=== PATIENT | female | born 1950 | race Caucasian/White ===

== ENCOUNTER → 2016-08-25 | Outpatient (REF) | payer BC | LOC: LAB 09:10 | PROVIDERS: ATTEND Family Medicine | DX: R73.09 Other abnormal glucose (principal) | CPT/HCPCS: 83036 ==

== ENCOUNTER → 2016-11-02 | Outpatient (CLI) | payer BC, MEDICARE ==
--- NOTE | 2016-11-03 17:31 | Diagnostic Imaging Report ---
EXAM: DIG IFRAH BILAT SCREEN W CAD The current study was also evaluated with a Computer Aided Detection (CAD) system. INDICATION: Screening. COMPARISON: Multiple mammograms 01/03/2011 through 09/22/2015. DENSITY: Scattered areas of fibroglandular density. FINDINGS: New possible focal asymmetry in the anterior upper left breast along the nipple line on the CC view. No mass, calcification or architectural distortion suspicious for malignancy in the right breast. IMPRESSION: 1. New possible focal asymmetry in the left breast. 2. No mammographic findings suspicious for malignancy in the right breast. RECOMMENDATION: Additional imaging of the left breast. ACR BI-RADS Category 0: Incomplete. (Needs additional imaging evaluation). Result letter will be mailed to the patient. Note: At least 10% of breast cancer is not imaged by mammography. Dictated by: Dictated on workstation # [id number]
== END ==
LOC: RAD 08:58
PROVIDERS: ATTEND Nurse Practitioner Family
DX: Z12.31 Encounter for screening mammogram for malignant neoplasm of breast (principal)

== ENCOUNTER 2016-11-16 10:55 | Inpatient (IN) | payer BC, MEDICARE ==
[~2016-11-16] VITALS: Ht 170.2 cm; Wt 65.2 kg
[2016-11-16] VITALS (17 sets, daily range): BP systolic 74–137; BP diastolic 50–74
--- OUTSIDE RECORDS SUMMARY | 2016-11-16 11:00 | XMS REPORT | Continuity of Care Document ---
Author Author [facility] Address Unknown Phone Unavailable Allergies Medications Problems Date Dx Coded Attending Type Code Diagnosis Diagnosed By 09/01/2015 Ot E78.5 09/01/2015 Ot I10 09/01/2015 Ot R73.9 10/05/2015 MARINO TRONCOSO, HARLEEN De La Cruz Ot Z12.31 10/07/2015 MARINO TRONCOSO, HARLEEN De La Cruz Ot Z12.31 12/23/2015 MARINO TRONCOSO, HARLEEN De La Cruz Ot R73.09 OTHER ABNORMAL GLUCOSE 2016 Ot R73.09 OTHER ABNORMAL GLUCOSE 09/05/2016 Ot R73.09 OTHER ABNORMAL GLUCOSE 09/13/2016 Ot R73.09 OTHER ABNORMAL GLUCOSE 11/02/2016 Ot R73.09 OTHER ABNORMAL GLUCOSE 11/04/2016 TOBIAS BARROS APRN Ot Z12.31 ENCNTR SCREEN MAMMOGRAM FOR MALIGNANT NE 11/08/2016 TOBIAS BARROS APRN Ot Z12.31 ENCNTR SCREEN MAMMOGRAM FOR MALIGNANT NE Procedures Results Test Result Range HEMOGLOBIN A1C* - 08/25/16 09:08 HEMOGLOBIN A1C* 5.9 4.0-6.0 Encounters ACCT No. Visit Date/Time Discharge Status Pt. Type Provider Facility Loc./Unit Complaint [id number] 11/02/2016 08:58:00 ACT Outpatient TOBIAS BARROS HUMAN SERVICES ASSISTANT [facility] RAD Z12.31 SCREENING [id number] 08/25/2016 09:37:00 Document Registration [id number] 12/06/2015 10:39:00 ACT Outpatient MARINO TRONCOSO, HARLEEN [facility] LAB [id number] 09/22/2015 09:49:00 ACT Outpatient MARINO TRONCOSO, HARLEEN [facility] RAD [id number] 08/20/2015 09:59:00 Document Registration
[2016-11-16] MEDS ORDERED: DILTIAZEM 25 MG/5 ML (CARDIZEM) VIAL ONE (11:03)
[2016-11-16] MEDS ORDERED: CALC1CAP21 PO (11:18)
[2016-11-16] MEDS ORDERED: PRV20T PO (11:18)
[2016-11-16] MEDS ORDERED: HYDR12.56 PO (11:18)
[2016-11-16] MEDS ORDERED: AML2.5T PO (11:18)
[2016-11-16] MEDS ORDERED: DILTIAZEM 25 MG/5 ML (CARDIZEM) VIAL IV ONE ×2 (11:20→11:55)
[2016-11-16 11:21] LABS: BASOPHILS % (AUTO) 0 % (0-2); EOSINOPHILS % (AUTO) 0 % (0-4); LYMPHOCYTES # (AUTO) 0.6 X10^3; MEAN CORPUSCULAR HGB CONC 33.3 g/dL (31.0-37.0); MEAN PLATELET VOLUME 11.6 FL (6.0-9.5); MONOCYTES # (AUTO) 1.1 X10^3; MONOCYTES % (AUTO) 13 % (3-11); NEUTROPHILS # (AUTO) 6.5 X10^3; NEUTROPHILS % (AUTO) 79 % (51-67); PLATELET COUNT 242 10^3uL (150-450); WHITE BLOOD COUNT 8.21 10^3uL (4.0-11.0)
[2016-11-16 11:27] LABS: ALBUMIN 3.2 g/dL (3.4-5.0); ALKALINE PHOSPHATASE 144 U/L (38-126); ANION GAP 14.9 MEQ/L (3-15); BUN/CREATININE RATIO 45 (10-20); TOTAL PROTEIN 6.8 g/dL (6.4-8.5)
[2016-11-16 11:33] LABS: MEAN CORPUSCULAR HEMOGLOBIN 23.7 PG (26.0-34.0); MEAN CORPUSCULAR VOLUME 71 FL (80-100)
[2016-11-16] MEDS ORDERED: ZLP5T PO (11:40)
[2016-11-16] MEDS ORDERED: meTOprolol 5 MG/5 ML (LOPRESSOR) VIAL IV ONE ×2 (12:30→13:35)
--- NOTE | 2016-11-16 12:40 | Diagnostic Imaging Report ---
INDICATION: Shortness of breath. Portable chest 12:11 PM FINDINGS: Heart size and pulmonary vascularity are normal. Lungs are clear. There are no effusions or pneumothoraces. IMPRESSION: Negative chest. Dictated by: Dictated on workstation # [id number]
[2016-11-16] MEDS ORDERED: PROPRANOLOL 40 MG PO SCH (14:05)
[2016-11-16] MEDS ORDERED: DOCUSATE SODIUM 100 MG (COLACE) CAP PO PRN (14:05)
[2016-11-16] MEDS ORDERED: MAG HYDROX/AL HYDROX/SIMETH 200-200-20/5 ML (MAG-AL PLUS) 30 ML UDC PO PRN (14:05)
[2016-11-16] MEDS ORDERED: ONDANSETRON 4 MG (ZOFRAN) ORAL DISSOLVE TAB PO PRN (14:05)
[2016-11-16] MEDS ORDERED: MAGNESIUM HYDROXIDE 80MG/ML (MILK OF MAGNESIA) 30 ML UDC PO PRN (14:05)
[2016-11-16] MEDS ORDERED: PROMETHAZINE HCL INJ 12.5 MG in SODIUM CHLORIDE 25 ML IV PRN (14:05)
[2016-11-16] MEDS ORDERED: CALCIUM CARBONATE CHEWABLE 300 MG (TUMS) TABLET PO PRN (14:05)
[2016-11-16] MEDS ORDERED: POLYETHYLENE GLYCOL 17 GM (MIRALAX) PACKET PO PRN (14:05)
[2016-11-16] MEDS ORDERED: IRBE1TAB33 PO (14:19)
[2016-11-16] MEDS ORDERED: NS FLUSH 3 ML PRN IV (14:30)
[2016-11-16] MEDS ORDERED: MULT-954 PO (14:32)
[2016-11-16] MEDS ORDERED: ASPI-860 PO (14:33)
[2016-11-16] MEDS ORDERED: ASP81TEC PO (14:34)
--- NOTE | 2016-11-16 14:55 | History and Physical (E) ---
History & Physical PCP: Denis Dillard MD CC: Afib with RVR HPI Jessica Simpson is a 66 year old female admitted from ED 11/16 where she presented from PCP's office. She had a physical there and EKG showed atrial fibrillation with rate of 200. She has no prior history of atrial fibrillation and she was not experiencing any chest pain or dyspnea. Admits to feeling palpitations at times before. HR was elevated as described. Temp 99.9. RR 34, BP 149/77. SpO2 99 % RA. CBC showed mild anemia at 10.6. WBC normal. INR 1.3. Na was low at 128 with K 3.3. Bili 1.2. T4 was high and TSH was very suppressed. Urine was not checked. She was given NS bolus, diltiazem 25 mg IV bolus x 2, and metoprolol 5 mg x 1. Rate improved some but she was still quite tachycardic. She was admitted to ICU for further management of new onset atrial fibrillation and newly identified hyperthyroidism. On arrival to unit, awake, alert, interactive, oriented, not dyspneic and having no chest pain. She relates history well. Was at clinic today just for well-woman check. Acknowledges having palpitations off and on for a couple of months. Hadn't reported this to anyone. No episodes of dyspnea or chest pain. No syncopal symptoms. Perhaps mild decrease in energy but it hasn't affected her daily activities. Has never had heart problems before. Regarding thyroid dysfunction, no prior problems with thyroid but sister has Graves disease. No neck swelling. No trouble swallowing. Acknowledges losing weight without trying, perhaps 5 pounds since 07/2016. Has felt jittery and anxious. No visual changes. No change in bowel habits. No hot flashes. More irritable, she acknowledges. Thinks her BP has been stable but she hasn't checked it regularly. PMH * HLD * HTN * Pedal edema due to amlodipine PSH * Tubal ligation ALLERGIES: Please see list at end of report. HOME MEDICATIONS: Please see list at end of report. FH Sister has Graves disease. Mom at 92 with Parkinson's, atrial fibrillation. She had skin cancer. Father had stroke. Son and 3 daughters are all healthy. SH Lives in [place]. Works at the [employer]. . No smoking. No alcohol. No drug use. ROS CONSTITUTION: No fever or chills. HEENT: No change in vision or hearing. No sores in mouth, sore throat. CV: No chest pain. PULM: No cough, shortness of breath, difficulty breathing. GI: No upset stomach, nausea, vomiting, constipation, or diarrhea. No blood in stool. : No dysuria. No blood in urine. MS: No new muscle or joint aches and pains. NEURO: No numbness or tingling. No weakness. INTEG: No rashes, lesions, or sores. ENDO: No heat or cold intolerance. No polydipsia or polyuria. HEME/LYMPH: No easy bruising or bleeding. No swollen glands. PSYCH: Mild increase in irritability. OBJECTIVE Vital Signs Date Time Temp Pulse Resp B/P Pulse Ox O2 Delivery O2 Flow Rate FiO2 11/16/16 11:05 99.9 196 34 149/77 99 Room Air GEN: Awake, alert, oriented, NAD HEENT: EOMI, PERRL, moist oral mucosa. CV: RRR S1 S2 normal with no murmur LUNGS: CTA B ABD: Soft, NT/ND with normal bowel sounds. EXTR: No C/C/E. Normal peripheral pulses. INTEG: No rash. NEURO: No focal motor neuro deficit. Weight: 62.8 kg LABS Laboratory Results-14 Days 11/16/16 11:05: Magnesium Level 1.6, SG-Ywk-T-Type Natriuretic Peptide 1870H, Prothromb Time International Ratio 1.3, Prothrombin Time 14.7H, Thyroglobulin Antibody [Pending ], Thyroid Peroxidase Antibodies [Pending], Thyroid Stimulating Immunoglobulin [ Pending], Thyroxine Binding Globulin [Pending], Troponin I < 0.012 11/16/16 11:10: Alanine Aminotransferase (ALT/SGPT) 50, Albumin 3.2#L, Albumin/Globulin Ratio 0.888L, Alkaline Phosphatase 144H, Anion Gap 14.9, Aspartate Amino Transf (AST/ SGOT) 32, BUN/Creatinine Ratio 45H, Basophils # (Auto) 0.0, Basophils (%) (Auto ) 0, Blood Urea Nitrogen 18, Calcium Level 8.9, Calcium/Ionized Calcium Ratio 4.0, Calculated Osmolality 251L, Carbon Dioxide Level 26, Chloride Level 90L, Creatinine 0.40L, Eosinophils # (Auto) 0.0, Eosinophils (%) (Auto) 0, Estimat Glomerular Filtration Rate 193.8, Estimated GFR (Non- 160.2, Free Thyroxine (T4) Calculated 6.79H, Glucose Level 129H, Hematocrit 31.80L, Hemoglobin 10.6L, Lymphocytes # (Auto) 0.6, Lymphocytes (%) (Auto) 7L, Mean Corpuscular Hemoglobin 23.7L, Mean Corpuscular Hemoglobin Concent 33.3, Mean Corpuscular Volume 71L, Mean Platelet Volume 11.6H, Monocytes # (Auto) 1.1, Monocytes (%) (Auto) 13H, Neutrophils # (Auto) 6.5, Neutrophils (%) (Auto) 79H, Platelet Count 242, Potassium Level 3.3#L, Red Blood Count 4.48, Red Cell Distribution Width 14.5, Smear Scan Yes, Sodium Level 128L, Thyroid Stimulating Hormone (TSH) < 0.02L, Thyroxine (T4) 21.3H, Total Bilirubin 1.2H, Total Protein 6.8, White Blood Count 8.21 EKG 11/16 Afib with RVR, right axis. IMAGING 11/16/16 CHEST 1 VIEW, AP/PA ONLY* INDICATION: Shortness of breath. Portable chest 12:11 PM FINDINGS: Heart size and pulmonary vascularity are normal. Lungs are clear. There are no effusions or pneumothoraces. IMPRESSION: Negative chest. ASSESSMENT Jessica Simpson is a 66 year old female admitted from ED 11/16 with new onset atrial fibrillation with RVR and newly-diagnosed hyperthyroidism. PLAN * Atrial fibrillation with RVR: New onset, likely due to hyperthyroidism. Got diltiazem 25 mg x 2 and metoprolol 5 mg x 1 in ED which improved rate but she remained in RVR. Admitted to ICU and started IV diltiazem drip. * Hyperthyroidism: Uncertain etiology. Suspect graves. Check iodine uptake scan if able at this facility. Check thyroid antibodies. Propranolol 40 mg BID and consider methimazole. * Hyponatremia: Multifactorial. Monitor trend with IVF replacement. * Hypokalemia: Mild. Check Mg. PO supplement. * F/E/N: Cardiac diet. NS bolus given in ED. Additional 1 L maintenance. I&O, daily weight. * Prophylaxis: Enoxaparin * Code Status: Full * Dispo: ICU for above issues, expecting 2-3 day stay. CHRONIC ISSUES * HTN: Hold amlodipine for now. Hold HCTZ due to hypokalemia and hyponatremia. Added propranolol due to hyperthyroidism. * HLD: Pravastatin. * Insomnia: Zolpidem Allergies/Home Medications Allergies: Coded Allergies: Sulfa (Sulfonamide Antibiotics) (Verified Allergy, Unknown, 11/16/16) Reported Home Medications Scheduled Amlodipine Besylate (Amlodipine Besylate) 2.5 MG PO DAILY (Reported) Calcium Carbonate/Vitamin D3 (Calcium 600 + D3 Softgel) 1 EACH PO DAILY ( Reported) Irbesartan/Hydrochlorothiazide (Irbesartan-HCTZ 300-12.5 mg) 1 TAB PO DAILY ( Reported) Pravastatin Sodium (Pravastatin Sodium) 20 MG PO DAILY (Reported) Zolpidem Tartrate (Zolpidem Tartrate) 5 MG PO HS Discontinued Medications Hydrochlorothiazide (Hydrochlorothiazide) 12.5 MG PO DAILY (Reported) Discontinued Reason: Course completed Copies to: End of Report . VIRI NATARAJAN MD Nov 16, 2016 14:02
[2016-11-16] MEDS: POTASSIUM CHLORIDE ER 20 MEQ TABLET PO SCH ×2 (15:05→18:16)
[2016-11-16] MEDS: DILTIAZEM IV FOR DRIP 125 MG in SODIUM CHLORIDE 100 ML IV PRN (15:14)
[2016-11-16] MEDS: ACETAMINOPHEN 325 MG TAB (TYLENOL) PO PRN (16:52)
[2016-11-16 17:09] LABS: ALBUMIN 2.9 g/dL (3.4-5.0); ANION GAP 11.9 MEQ/L (3-15)
[2016-11-16] MEDS: ZOLPIDEM 5 MG (AMBIEN) TAB PO SCH (20:55)
[2016-11-17] VITALS (15 sets, daily range): BP systolic 109–128; BP diastolic 52–81
[2016-11-17] MEDS: NS FLUSH 10 ML PRN IV ×2 (00:47→17:55)
[2016-11-17] MEDS ORDERED: SODIUM CHLORIDE 250 ML IV PRN (02:10)
[2016-11-17 06:10] LABS: BASOPHILS % (AUTO) 0 % (0-2); EOSINOPHILS % (AUTO) 0 % (0-4); LYMPHOCYTES # (AUTO) 0.8 X10^3; MEAN CORPUSCULAR HGB CONC 32.5 g/dL (31.0-37.0); MEAN PLATELET VOLUME 12.4 FL (6.0-9.5); MONOCYTES # (AUTO) 0.6 X10^3; MONOCYTES % (AUTO) 10 % (3-11); NEUTROPHILS # (AUTO) 4.6 X10^3; NEUTROPHILS % (AUTO) 75 % (51-67); PLATELET COUNT 217 10^3uL (150-450); WHITE BLOOD COUNT 6.06 10^3uL (4.0-11.0)
[2016-11-17 06:19] LABS: ALBUMIN 2.9 g/dL (3.4-5.0); ANION GAP 12.5 MEQ/L (3-15)
[2016-11-17 06:40] LABS: BILIRUBIN,URINE Negative (Negative); CLARITY,URINE Clear; COLOR,URINE Yellow; GLUCOSE, URINE (UA) Negative (Negative); LEUKOCYTE ESTERASE ,URINE Negative (Negative)
[2016-11-17 06:59] LABS: MEAN CORPUSCULAR HEMOGLOBIN 23.3 PG (26.0-34.0); MEAN CORPUSCULAR VOLUME 72 FL (80-100)
[2016-11-17] MEDS: ENOXAPARIN 40 MG/0.4 ML (LOVENOX) SYR SC SCH (08:45)
[2016-11-17] MEDS: POTASSIUM CHLORIDE ER 20 MEQ TABLET PO SCH (08:45)
[2016-11-17] MEDS: PRAVASTATIN 20 MG (PRAVACHOL) TABLET PO SCH (08:45)
[2016-11-17] MEDS ORDERED: NS FLUSH 3 ML DAILY IV SCH (09:00)
[2016-11-17] MEDS: PROPRANOLOL 20 MG (INDERAL) TABLET PO SCH ×2 (09:05→20:45)
[2016-11-17] MEDS: DILTIAZEM IV FOR DRIP 125 MG in SODIUM CHLORIDE 100 ML IV PRN (09:22)
[2016-11-17] MEDS ORDERED: METHIMAZOLE 10 MG PO SCH (09:30)
--- NOTE | 2016-11-17 09:56 | Progress Note (E) ---
Progress Note SUBJECTIVE Overnight, no major issues but lowered propranolol dose yesterday evening because of hypotension. HR low 100's - 120's. Still on diltiazem drip. Adding PO diltiazem 11/17. Unable to get thyroids uptake scan at this facility. Started methimazole. Recommended anticoagulation. Discussed options and she agrees to start warfarin. Daughter present. Updated both on findings, plan of care. OBJECTIVE Vital Signs Date Time Temp Pulse Resp B/P Pulse Ox O2 Delivery O2 Flow Rate FiO2 11/17/16 09:25 121 11/17/16 09:00 36 127/72 Room air 11/17/16 08:00 99.5 90 I & O 11/16/16 11/17/16 Cumulative From/Thru 19:00 07:00 11/16/16 11:05 - 11/17/16 06:38 Intake Total 1647 ml 1014 ml 2661 ml Output Total 350 ml 1100 ml 1450 ml Balance 1297 ml -86 ml 1211 ml GEN: Awake, alert, oriented, NAD HEENT: EOMI, PERRL, moist oral mucosa. CV: RRR S1 S2 normal with no murmur LUNGS: CTA B ABD: Soft, NT/ND with normal bowel sounds. EXTR: No C/C/E. Normal peripheral pulses. INTEG: No rash. NEURO: No focal motor neuro deficit. Lab-Past 14 Days, 35 Results 11/16/16 11:05: Magnesium Level 1.6, JN-Ymj-G-Type Natriuretic Peptide 1870H, Prothromb Time International Ratio 1.3, Prothrombin Time 14.7H, Thyroglobulin Antibody 1000H, Thyroid Peroxidase Antibodies 39H, Thyroid Stimulating Immunoglobulin [Pending] , Thyroxine Binding Globulin [Pending], Troponin I < 0.012 11/16/16 11:10: Alanine Aminotransferase (ALT/SGPT) 50, Albumin 3.2#L, Albumin/Globulin Ratio 0.888L, Alkaline Phosphatase 144H, Anion Gap 14.9, Aspartate Amino Transf (AST/ SGOT) 32, BUN/Creatinine Ratio 45H, Basophils # (Auto) 0.0, Basophils (%) (Auto ) 0, Blood Urea Nitrogen 18, Calcium Level 8.9, Calcium/Ionized Calcium Ratio 4.0, Calculated Osmolality 251L, Carbon Dioxide Level 26, Chloride Level 90L, Creatinine 0.40L, Eosinophils # (Auto) 0.0, Eosinophils (%) (Auto) 0, Estimat Glomerular Filtration Rate 193.8, Estimated GFR (Non- 160.2, Free Thyroxine (T4) Calculated 6.79H, Glucose Level 129H, Hematocrit 31.80L, Hemoglobin 10.6L, Lymphocytes # (Auto) 0.6, Lymphocytes (%) (Auto) 7L, Mean Corpuscular Hemoglobin 23.7L, Mean Corpuscular Hemoglobin Concent 33.3, Mean Corpuscular Volume 71L, Mean Platelet Volume 11.6H, Monocytes # (Auto) 1.1, Monocytes (%) (Auto) 13H, Neutrophils # (Auto) 6.5, Neutrophils (%) (Auto) 79H, Platelet Count 242, Potassium Level 3.3#L, Red Blood Count 4.48, Red Cell Distribution Width 14.5, Smear Scan Yes, Sodium Level 128L, Thyroid Stimulating Hormone (TSH) < 0.02L, Thyroxine (T4) 21.3H, Total Bilirubin 1.2H, Total Protein 6.8, White Blood Count 8.21 11/16/16 16:55: Troponin I < 0.012, Albumin 2.9L, Anion Gap 11.9, Blood Urea Nitrogen 16, Calcium Level 8.5L, Carbon Dioxide Level 30H, Chloride Level 90L, Creatinine 0.54L, Estimat Glomerular Filtration Rate 137.1, Estimated GFR (Non- 113.3, Glucose Level 162#H, Potassium Level 3.5, Sodium Level 128L, Ferritin [Pending], Iron (send out) [Pending], Phosphorus Level 3.7, Total Iron Binding Capacity [Pending], Transferrin % Saturation [Pending] 11/17/16 05:20: Albumin 2.9L, Anion Gap 12.5, Basophils # (Auto) 0.0, Basophils (%) (Auto) 0, Blood Urea Nitrogen 19H, Calcium Level 8.6L, Carbon Dioxide Level 27, Chloride Level 94L, Creatinine 0.43L, Eosinophils # (Auto) 0.0, Eosinophils (%) (Auto) 0 , Estimat Glomerular Filtration Rate 178.3, Estimated GFR (Non- 147.4, Glucose Level 106#, Hematocrit 30.50L, Hemoglobin 9.9L, Lymphocytes # ( Auto) 0.8, Lymphocytes (%) (Auto) 14L, Mean Corpuscular Hemoglobin 23.3L, Mean Corpuscular Hemoglobin Concent 32.5, Mean Corpuscular Volume 72L, Mean Platelet Volume 12.4H, Monocytes # (Auto) 0.6, Monocytes (%) (Auto) 10, Neutrophils # ( Auto) 4.6, Neutrophils (%) (Auto) 75H, Platelet Count 217, Potassium Level 3.5, Red Blood Count 4.24, Red Cell Distribution Width 14.7, Smear Scan Yes, Sodium Level 130L, White Blood Count 6.06, Phosphorus Level 3.3 11/17/16 05:25: Urine Bilirubin Negative, Urine Blood Negative, Urine Clarity Clear, Urine Collection Type Random voided, Urine Color Yellow, Urine Glucose (UA) Negative, Urine Ketones Negative, Urine Leukocyte Esterase Negative, Urine Nitrite Negative, Urine Protein Negative, Urine Specific [place] 1.015, Urine Urobilinogen 1.0, Urine pH 7.0 EKG 11/16 Afib with RVR, right axis. TELE 11/17 Atrial fibrillation IMAGING 11/16/16 CHEST 1 VIEW, AP/PA ONLY* INDICATION: Shortness of breath. Portable chest 12:11 PM FINDINGS: Heart size and pulmonary vascularity are normal. Lungs are clear. There are no effusions or pneumothoraces. IMPRESSION: Negative chest. ASSESSMENT Jessica Simpson is a 66 year old female admitted from ED 11/16 with new onset atrial fibrillation with RVR and newly-diagnosed hyperthyroidism. PLAN * Atrial fibrillation with RVR: New onset, likely due to hyperthyroidism. Got diltiazem 25 mg x 2 and metoprolol 5 mg x 1 in ED which improved rate but she remained in RVR. Admitted to ICU and started IV diltiazem drip. Started PO diltiazem 11/17 with goal of titration off drip. Started warfarin. * Hyperthyroidism: Uncertain etiology. Suspect Graves. Unable to get thyroid uptake scan at this facility. Check thyroid antibodies. Propranolol 40 mg BID initially but lowered dose to 20 mg BID because of hypotension. Started methimazole. * Hyponatremia: Mild on admit at 128. Multifactorial. Improved. Monitored trend with IVF replacement. * Hypokalemia: Mild on admit at 3.3. Improved with PO supplement. * Hypomagnesemia: Mild at 1.6. Gave 1 mg IV supplement. Check Mg. PO supplement. * F/E/N: Cardiac diet. NS bolus given in ED. Additional 1 L maintenance. I&O, daily weight. * Prophylaxis: Warfarin/Enoxaparin * Code Status: Full * Dispo: ICU for above issues. Starting PO diltiazem with plan to transition off drip. Starting anticoagulation. CHRONIC ISSUES * HTN: Hold amlodipine for now. Hold HCTZ due to hypokalemia and hyponatremia. Added propranolol due to hyperthyroidism. * HLD: Pravastatin. * Insomnia: ArgentinapideVIRI Galvan MD Nov 17, 2016 09:37
[2016-11-17] MEDS ORDERED: MAGNESIUM 1 GM/100 ML IVPB 100 ML IV ONE (10:19)
[2016-11-17] MEDS: DILTIAZEM CD 180 MG (CARDIZEM CD) CAP PO SCH (10:31)
[2016-11-17] MEDS: METHIMAZOLE 10 MG PO SCH ×2 (14:43→20:46)
[2016-11-17] MEDS ORDERED: warFARin 5 MG (COUMADIN) TAB PO SCH (17:00)
[2016-11-17 19:03] LABS: IRON 13 ug/dL (50-170); UNBOUND IRON CONTENT 171 ug/dl (126-382)
[2016-11-17] MEDS: ZOLPIDEM 5 MG (AMBIEN) TAB PO SCH (20:43)
[2016-11-17] MEDS: ACETAMINOPHEN 325 MG TAB (TYLENOL) PO PRN (20:45)
[2016-11-18] VITALS: BP 100/69
[2016-11-18 04:00] VITALS: BP 103/61
[2016-11-18] MEDS: METHIMAZOLE 10 MG PO SCH (05:35)
[2016-11-18 06:58] LABS: ALBUMIN 2.5 g/dL (3.4-5.0); ANION GAP 12.5 MEQ/L (3-15); MAGNESIUM* 1.8 mg/dL (1.6-2.3)
[2016-11-18 08:30] VITALS: BP 125/81
[2016-11-18] MEDS: PROPRANOLOL 20 MG (INDERAL) TABLET PO SCH (08:50)
[2016-11-18] MEDS: DILTIAZEM CD 180 MG (CARDIZEM CD) CAP PO SCH (08:50)
[2016-11-18] MEDS: PRAVASTATIN 20 MG (PRAVACHOL) TABLET PO SCH (08:50)
[2016-11-18] MEDS: ENOXAPARIN 40 MG/0.4 ML (LOVENOX) SYR SC SCH (08:50)
[2016-11-18] MEDS ORDERED: METH5TAB5 PO (09:33)
[2016-11-18] MEDS ORDERED: AC325T PO (09:33)
[2016-11-18] MEDS ORDERED: WRF5T PO (09:33)
[2016-11-18] MEDS ORDERED: DLT180CCR PO (09:33)
--- NOTE | 2016-11-18 09:47 | Discharge Instructions (E) ---
Discharge Instructions Instructions * You were evaluated and treated for fast heart rate due to atrial fibrillation. Review the provided handout for details. In atrial fibrillation, medication is needed to help slow the heart rate. You were prescribed diltiazem. Take daily as directed. If you feel palpitations or if you notice your heart rate is consistently greater the 110 beats per minute, talk to your doctor about increasing this dose. * You were previously taking amlodipine for hypertension. Diltiazem is a similar medication (calcium channel anthony.) You should STOP taking amlodipine because you are now taking diltiazem. * In atrial fibrillation, there is an increased risk of stroke. Because of this , patients are usually recommended to take a blood thinner. This was discussed during your hospitalization and you chose to use warfarin. This medication has a blood test called INR that monitors the effects of warfarin. The day of discharge, your INR was 2.0. Your goal INR is to be between 2 -3. Take warfarin after discharge as directed. Have your INR checked on Sunday, November 20. It may be necessary to adjust your dose after discharge based on the INR level. * As with all blood thinners, warfarin increases the risk of bleeding, bruising , and can lead to serious bleeding risks such as gastrointestinal bleeding. Review the provided handout for details. * As part of your evaluation for atrial fibrillation, you had an echocardiogram. The results were pending at the time of discharge. Your primary care doctor can review these results with you and can arrange for a referral to a quality control tech to discuss further treatment options for atrial fibrillation. * You were also evaluated and treated for hyperthyroidism, a condition of over- active thyroid function. This is likely the trigger for atrial fibrillation. The cause of your hyperthyroidism is uncertain, but Grave's Disease is suspected. Thyroid lab tests were ordered to further evaluate this but the results were pending at the time of discharge. Your primary care doctor can discuss these results with you after discharge. Arrangements for referral to an posting clerk can be made if you and your primary care doctor choose to do so. * To help control your overactive thyroid function, methimazole has been prescribed. Review the provided handout for details. This medication is usually taken for at least 6 months. The effects can be monitored by repeat thyroid function testing. Have your TSH checked again in 2 weeks. * Be sure to seek medical attention if you develop chest pain, palpitations, light-headedness or dizziness, shortness of breath, or for any other concerns. Activity Instructions As tolerated. Doctor's Appointment Follow-up with your primary care doctor in 3-5 days. Have your INR and blood chemistry checked at the [facility] on Sunday, 11/20. Discharge Diet: VIRI Mir MD Nov 18, 2016 09:45
[2016-11-18] MEDS ORDERED: FERR325T5 PO (17:56)
--- NOTE | 2016-11-18 18:04 | Discharge Summary (E) ---
Discharge Summary (E) Admit Date/Time Nov 16, 2016 at 13:40 Discharge Date/Time Nov 18, 2016 at 11:40 Admitting Provider Kian Arechiga MD Primary Care Provider Denis Dillard MD Attending Provider Kian Arechiga MD Consulting Provider History and Present Illness Jessica Simpson is a 66 year old female admitted from ED 11/16 with new onset atrial fibrillation with RVR and newly-diagnosed hyperthyroidism. She had been in clinic that same day for a physical and was discovered to be in atrial fibrillation so was sent to ED. IN ED, she was found to be profoundly hyperthyroid. She was admitted to ICU and treated with IV diltiazem and propranolol. Rate improved, and she was transitioned to oral diltiazem. Educated about stroke prophylaxis and she elected warfarin. Started methimazole for hyperthyroidism. She improved and was discharged home in improved, stable condition. Full details as follows: Hospital Course and Treatment * Atrial fibrillation with RVR: New onset, likely due to hyperthyroidism. Got diltiazem 25 mg x 2 and metoprolol 5 mg x 1 in ED which improved rate but she remained in RVR. Admitted to ICU and started IV diltiazem drip. Started PO diltiazem 11/17 with goal of titration off drip. Started warfarin. Handouts provided. Recommended that she discuss cardiology referral with PCP. Once hyperthyroidism is under control, may want to pursue cardioversion or other appropriate therapy to get out of atrial fibrillation. * Hyperthyroidism: Uncertain etiology. Suspect Graves. Unable to get thyroid uptake scan at this facility. Checked thyroid antibodies, pending at the time of discharge. Propranolol 40 mg BID initially but lowered dose to 20 mg BID because of hypotension. Started methimazole. At discharge, did not continue propranolol. Discussed possibility of endocrinology referral. PCP can follow-up on this at next office visit and make recommendations. * Iron Deficiency Anemia: Noted Hgb on admit was 10.6, down to 9.9 before discharge. Stated she had colonoscopy 10 years ago that was normal and has been planning to see GI in [place] for updated endoscopy. No reports of blood in stools. Iron 13, Ferritin 224, but Transferrin sat 7%. Recommended iron supplement. Recommended updated colonoscopy. Follow-up CBC in 1 month. * Hyponatremia: Resolved. Mild on admit at 128. Multifactorial. Improved. Monitored trend with IVF replacement. * Hypokalemia: Resolving. Mild on admit at 3.3. Improved with PO supplement. * Hypomagnesemia: Mild at 1.6. Gave 1 mg IV supplement. Check Mg. PO supplement. * F/E/N: Cardiac diet. NS bolus given in ED. Additional 1 L maintenance. I&O, daily weight. * Prophylaxis: Warfarin/Enoxaparin * Code Status: Full * Dispo: ICU for above issues. Discharged home in improved, stable condition. CHRONIC ISSUES * HTN: Stopped amlodipine. Restarted irbesartan/HCTZ at discharge. * HLD: Pravastatin. * Insomnia: Zolpidem Discharge Physicial Exam General Vital Signs Date Time Temp Pulse Resp B/P Pulse Ox O2 Delivery O2 Flow Rate FiO2 11/18/16 09:25 115 11/18/16 08:30 98.6 18 125/81 96 Room air GEN: Awake, alert, oriented, NAD HEENT: EOMI, PERRL, moist oral mucosa. No palpable thyroid enlargement or goiter. CV: Irregular, rate improved, S1 S2 audible without murmur. LUNGS: CTA B with no R/R/W. ABD: Soft, NT/ND with normal bowel sounds. EXTR: No C/C/E. Normal peripheral pulses. INTEG: No rash. NEURO: No focal motor neuro deficit. Laboratory/Radiology Data Hgb 10.6 on admit, 9.9 on discharge. MCV low at 72. Iron profile consistent with iron deficiency. Na 128 on admit, 130 on discharge. K 3.3 on admit, 4.1 on discharge. INR was 2.0 on day of discharge. UA negative. T4 binding globulin and Thyroid stimulating immunoglobulin pending at time of discharge. Thyroglobulin antibody high at 1000. Thyroid peroxidase antibody high at 39. Full lab and imaging details: Laboratory Results-14 Days 11/16/16 11:05: Magnesium Level 1.6, [id number]-Type Natriuretic Peptide 1870H, Prothromb Time International Ratio 1.3, Prothrombin Time 14.7H, Thyroglobulin Antibody 1000H, Thyroid Peroxidase Antibodies 39H, Thyroid Stimulating Immunoglobulin [Pending] , Thyroxine Binding Globulin [Pending], Troponin I < 0.012 11/16/16 11:10: Alanine Aminotransferase (ALT/SGPT) 50, Albumin 3.2#L, Albumin/Globulin Ratio 0.888L, Alkaline Phosphatase 144H, Anion Gap 14.9, Aspartate Amino Transf (AST/ SGOT) 32, BUN/Creatinine Ratio 45H, Basophils # (Auto) 0.0, Basophils (%) (Auto ) 0, Blood Urea Nitrogen 18, Calcium Level 8.9, Calcium/Ionized Calcium Ratio 4.0, Calculated Osmolality 251L, Carbon Dioxide Level 26, Chloride Level 90L, Creatinine 0.40L, Eosinophils # (Auto) 0.0, Eosinophils (%) (Auto) 0, Estimat Glomerular Filtration Rate 193.8, Estimated GFR (Non- 160.2, Free Thyroxine (T4) Calculated 6.79H, Glucose Level 129H, Hematocrit 31.80L, Hemoglobin 10.6L, Lymphocytes # (Auto) 0.6, Lymphocytes (%) (Auto) 7L, Mean Corpuscular Hemoglobin 23.7L, Mean Corpuscular Hemoglobin Concent 33.3, Mean Corpuscular Volume 71L, Mean Platelet Volume 11.6H, Monocytes # (Auto) 1.1, Monocytes (%) (Auto) 13H, Neutrophils # (Auto) 6.5, Neutrophils (%) (Auto) 79H, Platelet Count 242, Potassium Level 3.3#L, Red Blood Count 4.48, Red Cell Distribution Width 14.5, Smear Scan Yes, Sodium Level 128L, Thyroid Stimulating Hormone (TSH) < 0.02L, Thyroxine (T4) 21.3H, Total Bilirubin 1.2H, Total Protein 6.8, White Blood Count 8.21 11/16/16 16:55: Troponin I < 0.012, Albumin 2.9L, Anion Gap 11.9, Blood Urea Nitrogen 16, Calcium Level 8.5L, Carbon Dioxide Level 30H, Chloride Level 90L, Creatinine 0.54L, Estimat Glomerular Filtration Rate 137.1, Estimated GFR (Non- 113.3, Glucose Level 162#H, Potassium Level 3.5, Sodium Level 128L, Ferritin 224H, Iron (send out) 13L, Phosphorus Level 3.7, Total Iron Binding Capacity 184L, Transferrin % Saturation 7L 11/17/16 05:20: Albumin 2.9L, Anion Gap 12.5, Basophils # (Auto) 0.0, Basophils (%) (Auto) 0, Blood Urea Nitrogen 19H, Calcium Level 8.6L, Carbon Dioxide Level 27, Chloride Level 94L, Creatinine 0.43L, Eosinophils # (Auto) 0.0, Eosinophils (%) (Auto) 0 , Estimat Glomerular Filtration Rate 178.3, Estimated GFR (Non- 147.4, Glucose Level 106#, Hematocrit 30.50L, Hemoglobin 9.9L, Lymphocytes # ( Auto) 0.8, Lymphocytes (%) (Auto) 14L, Mean Corpuscular Hemoglobin 23.3L, Mean Corpuscular Hemoglobin Concent 32.5, Mean Corpuscular Volume 72L, Mean Platelet Volume 12.4H, Monocytes # (Auto) 0.6, Monocytes (%) (Auto) 10, Neutrophils # ( Auto) 4.6, Neutrophils (%) (Auto) 75H, Platelet Count 217, Potassium Level 3.5, Red Blood Count 4.24, Red Cell Distribution Width 14.7, Smear Scan Yes, Sodium Level 130L, White Blood Count 6.06, Phosphorus Level 3.3 11/17/16 05:25: Urine Bilirubin Negative, Urine Blood Negative, Urine Clarity Clear, Urine Collection Type Random voided, Urine Color Yellow, Urine Glucose (UA) Negative, Urine Ketones Negative, Urine Leukocyte Esterase Negative, Urine Nitrite Negative, Urine Protein Negative, Urine Specific [place] 1.015, Urine Urobilinogen 1.0, Urine pH 7.0 11/17/16 10:50: Stool Occult Blood Negative 11/18/16 06:05: Albumin 2.5L, Anion Gap 12.5, Blood Urea Nitrogen 19H, Calcium Level 8.7L, Carbon Dioxide Level 27, Chloride Level 95L, Creatinine 0.47L, Estimat Glomerular Filtration Rate 160.9, Estimated GFR (Non- 133.0, Glucose Level 117H, Magnesium Level 1.8, Phosphorus Level 3.6, Potassium Level 4.1, Prothromb Time International Ratio 2.0H, Prothrombin Time 22.0H, Sodium Level 130L EKG 11/16 Afib with RVR, right axis. TELE 11/17 Atrial fibrillation IMAGING 11/16/16 CHEST 1 VIEW, AP/PA ONLY* INDICATION: Shortness of breath. Portable chest 12:11 PM FINDINGS: Heart size and pulmonary vascularity are normal. Lungs are clear. There are no effusions or pneumothoraces. IMPRESSION: Negative chest. Discharge Disposition Discharged home in improved, stable condition. Instructions * You were evaluated and treated for fast heart rate due to atrial fibrillation. Review the provided handout for details. In atrial fibrillation, medication is needed to help slow the heart rate. You were prescribed diltiazem. Take daily as directed. If you feel palpitations or if you notice your heart rate is consistently greater the 110 beats per minute, talk to your doctor about increasing this dose. * You were previously taking amlodipine for hypertension. Diltiazem is a similar medication (calcium channel anthony.) You should STOP taking amlodipine because you are now taking diltiazem. * In atrial fibrillation, there is an increased risk of stroke. Because of this , patients are usually recommended to take a blood thinner. This was discussed during your hospitalization and you chose to use warfarin. This medication has a blood test called INR that monitors the effects of warfarin. The day of discharge, your INR was 2.0. Your goal INR is to be between 2 -3. Take warfarin after discharge as directed. Have your INR checked on Sunday, November 20. It may be necessary to adjust your dose after discharge based on the INR level. * As with all blood thinners, warfarin increases the risk of bleeding, bruising , and can lead to serious bleeding risks such as gastrointestinal bleeding. Review the provided handout for details. * As part of your evaluation for atrial fibrillation, you had an echocardiogram. The results were pending at the time of discharge. Your primary care doctor can review these results with you and can arrange for a referral to a packer fuser to discuss further treatment options for atrial fibrillation. * You were also evaluated and treated for hyperthyroidism, a condition of over- active thyroid function. This is likely the trigger for atrial fibrillation. The cause of your hyperthyroidism is uncertain, but Grave's Disease is suspected. Thyroid lab tests were ordered to further evaluate this but the results were pending at the time of discharge. Your primary care doctor can discuss these results with you after discharge. Arrangements for referral to an driver helper can be made if you and your primary care doctor choose to do so. * To help control your overactive thyroid function, methimazole has been prescribed. Review the provided handout for details. This medication is usually taken for at least 6 months. The effects can be monitored by repeat thyroid function testing. Have your TSH checked again in 2 weeks. * Be sure to seek medical attention if you develop chest pain, palpitations, light-headedness or dizziness, shortness of breath, or for any other concerns. Activity Instructions As tolerated. Appointments Follow-up with your primary care doctor in 3-5 days. Have your INR and blood chemistry checked at the [facility] on Sunday, 11/20. Discharge Diet: Regular Discharge Medications New Medications: Ferrous Sulfate (Ferrous Sulfate) 325 Mg Tablet.dr 325 MG PO BID #60 Ref 0 TAB Methimazole (Methimazole) 5 Mg Tablet 5 MG PO TID #90 Ref 0 TAB Acetaminophen (Acetaminophen) 325 Mg Tablet 650 MG PO Q6H PRN PAIN #0 Ref 0 TAB Diltiazem HCl (Cardizem CD) 180 Mg Cap.er.24h 180 MG PO DAILY #30 Ref 0 CAP Warfarin (Warfarin) 5 Mg Tablet 5 MG PO DAILY@1700 #30 Ref 0 TAB Continued Medications: Aspirin (Ecotrin) 81 Mg Tablet.dr 81 MG PO DAILY TAB Calcium Carbonate/Vitamin D3 (Calcium 600 + D3 Softgel) 1 Each Capsule 1 EACH PO DAILY CAP Irbesartan/Hydrochlorothiazide (Irbesartan-HCTZ 300-12.5 mg) 1 Each Tablet 1 TAB PO DAILY #90 Multivitamin (Multi Vitamin Daily) 1 Each Tablet 1 EACH PO DAILY TAB Pravastatin Sodium (Pravastatin Sodium) 20 Mg Tablet 20 MG PO DAILY TAB Discontinued Medications: Amlodipine Besylate (Amlodipine Besylate) 2.5 Mg Tablet 2.5 MG PO DAILY TAB Follow up New Orders: CBC WITH AUTOMATED DIFF* - Within 4-6 weeks PROTIME WITH INR - 11/20/16 RENAL PROFILE - 11/20/16 TSH (THYROID STIMULATING HORM) - 12/04/16 Discharge Diagnosis See list above. Problems: Copies to: End of Report . KIAN ARECHIGA MD Nov 18, 2016 18:04
== END 2016-11-18 11:40 | disposition home or self-care (01) | DRG 644 ==
LOC: EDUNIT# 10:55 → ED 10:56 → ICU 13:40
PROVIDERS: ADMIT Internal Medicine; ATTEND Internal Medicine
DX: E05.00 Thyrotoxicosis with diffuse goiter without thyrotoxic crisis or storm (principal); E87.1 Hypo-osmolality and hyponatremia; I48.91 Unspecified atrial fibrillation; D50.9 Iron deficiency anemia, unspecified; E87.6 Hypokalemia; E83.42 Hypomagnesemia; I10 Essential (primary) hypertension; E78.5 Hyperlipidemia, unspecified; G47.00 Insomnia, unspecified
CPT/HCPCS: 36415; 71010; 80053; 80069; 81003; 82728; 83540; 83550; 83735; 83880; 84436; 84439; 84443; 84484; 85025; 85610; 86376; 86800; 93005; 93306; 96361; 96374; 96375; 96376; 99283; 99285

== ENCOUNTER → 2016-11-20 | Outpatient (CLI) | payer BC, MEDICARE ==
[~2016-11-20] MED LIST: AC325T PO; AML2.5T PO; ASP81TEC PO; ASPI-860 PO; CALC1CAP21 PO; DLT180CCR PO; FERR325T5 PO; HYDR12.56 PO; IRBE1TAB33 PO; METH5TAB5 PO; MULT-954 PO; PRV20T PO; WRF5T PO; ZLP5T PO
[2016-11-20 11:27] LABS: ANION GAP 15.2 MEQ/L (3-15)
== END ==
LOC: LAB 10:59
PROVIDERS: ATTEND Internal Medicine
DX: I48.91 Unspecified atrial fibrillation (principal); E87.6 Hypokalemia; E05.90 Thyrotoxicosis, unspecified without thyrotoxic crisis or storm
CPT/HCPCS: 36415; 80069; 84443; 85610

== ENCOUNTER 2016-11-21 10:02 | Emergency (ER) | payer BC, MEDICARE ==
[~2016-11-21] VITALS: Ht 170.2 cm; Wt 65.0 kg
--- OUTSIDE RECORDS SUMMARY | 2016-11-21 10:09 | XMS REPORT | Continuity of Care Document ---
Author Author [facility] Address Unknown Phone Unavailable Care Team Providers Care Community Reinvestment Act Officer Name Role Phone HARLEEN PICHARDO MD PCP [phone] Insurance Providers Payer Name Policy Number Subscriber Name Relationship [facility] [id number] Jessica Simpson 19 Self / Same As Patient Medicare A And B [id number] Jessica Simpson 19 Self / Same As Patient Advance Directives Directive Response Recorded Date/Time Advanced Directives No 11/16/16 2:57pm Chief Complaint and Reason for Visit Chief Complaint HYPERTHYROIDISM Reason for Visit Atrial fibrillation with RVR Dystonia Hyperthyroidism Hypokalemia Problems Active Problems Medical Problem Onset Date Status Atrial fibrillation with RVR Unknown Acute Dystonia Unknown Acute Hyperthyroidism Unknown Acute Hypokalemia Unknown Acute Medications Current Home Medications Medication Dose Units Route Directions Days/Qty Instructions Start Date Pravastatin Sodium (Pravachol) 20 Mg 20 Mg ORAL Daily 11/16/16 Calcium Carbonate/Vitamin D3 1 Each 1 Each ORAL Daily 11/16/16 Irbesartan/Hydrochlorothiazide 1 Each 1 Tab ORAL Daily 90 11/16/16 Multivitamin 1 Each 1 Each ORAL Daily 11/16/16 Aspirin (Aspirin Ec) 81 Mg 81 Mg ORAL Daily 11/16/16 Warfarin (Coumadin) 5 Mg 5 Mg ORAL Daily@1700 30 11/18/16 Acetaminophen (Tylenol) 325 Mg 650 Mg ORAL Every 6 Hours as needed for Pain 0 11/18/16 Diltiazem Hcl (Dilacor Xr) 180 Mg 180 Mg ORAL Daily 30 11/18/16 Methimazole 5 Mg 5 Mg ORAL Three Times A Day 90 11/18/16 Past Home Medications Medication Directions Ordered Status Hydrochlorothiazide 12.5 Mg Tablet, 12.5 Mg Oral Daily 11/16/16 Discontinued Amlodipine Besylate (Norvasc) 2.5 Mg Tablet, 2.5 Mg Oral Daily 11/16/16 Discontinued Zolpidem Tartrate (Ambien) 5 Mg Tablet, 5 Mg Oral Bedtime 11/16/16 Discontinued Aspirin 81 Mg Tablet.dr, 81 Mg Oral Daily 11/16/16 Discontinued Social History Query Response Start Date Stop Date Smoking Status Never smoker Hospital Discharge Instructions Patient's Instructions Instructions Instructions * You were evaluated and treated for fast heart rate due to atrial fibrillation. Review the provided handout for details. In atrial fibrillation, medication is needed to help slow the heart rate. You were prescribed diltiazem. Take daily as directed. If you feel palpitations or if you notice your heart rate is consistently greater the 110 beats per minute, talk to your doctor about increasing this dose. * You were previously taking amlodipine for hypertension. Diltiazem is a similar medication (calcium channel anthony.) You should STOP taking amlodipine because you are now taking diltiazem. * In atrial fibrillation, there is an increased risk of stroke. Because of this, patients are usually recommended to take a blood thinner. This was discussed during your hospitalization and you chose to use warfarin. This medication has a blood test called INR that monitors the effects of warfarin. The day of discharge, your INR was 2.0. Your goal INR is to be between 2 -3. Take warfarin after discharge as directed. Have your INR checked on Sunday, November 20. It may be necessary to adjust your dose after discharge based on the INR level. * As with all blood thinners, warfarin increases the risk of bleeding, bruising, and can lead to serious bleeding risks such as gastrointestinal bleeding. Review the provided handout for details. * As part of your evaluation for atrial fibrillation, you had an echocardiogram. The results were pending at the time of discharge. Your primary care doctor can review these results with you and can arrange for a referral to a electrical controls engineer to discuss further treatment options for atrial fibrillation. * You were also evaluated and treated for hyperthyroidism, a condition of over- active thyroid function. This is likely the trigger for atrial fibrillation. The cause of your hyperthyroidism is uncertain, but Grave's Disease is suspected. Thyroid lab tests were ordered to further evaluate this but the results were pending at the time of discharge. Your primary care doctor can d iscuss these results with you after discharge. Arrangements for referral to an banker mason can be made if you and your primary care doctor choose to do so. * To help control your overactive thyroid function, methimazole has been prescribed. Review the provided handout for details. This medication is usually taken for at least 6 months. The effects can be monitored by repeat thyroid function testing. Have your TSH checked again in 2 weeks. * Be sure to seek medical attention if you develop chest pain, palpitations, light-headedness or dizziness, shortness of breath, or for any other concerns. Activity Instructions As tolerated. Doctor's Appointment Follow-up with your primary care doctor in 3-5 days. Have your INR and blood chemistry checked at the [facility] on Sunday, 11/20. Discharge Diet: Regular Plan of Care Discharge Date 11/18/16 11:40am Disposition 01 HOME OR SELF-CARE Instructions/Education Provided Diltiazem Methimazole Warfarin Atrial Fibrillation (DC) What to Do When Your INR Is Too High Hyperthyroidism (Overactive Thyroid) (DC) Prescriptions See Medication Section Follow-up Orders PROTIME WITH INR RENAL PROFILE TSH (THYROID STIMULATING HORM) Care Plan and Goals See Discharge Instructions Section Functional Status Query Response Date Recorded Level of Conscious Oriented x4 November 18, 2016 9:27am Movement Steady gait November 18, 2016 9:27am Allergies, Adverse Reactions, Alerts Allergen Type Severity Reaction Status Last Updated Sulfa (Sulfonamide Antibiotics) Allergy Unknown Active 11/16/16 Immunizations No immunization records. Vital Signs Acute Vital Signs Vital Response Date/Time Temperature (Fahrenheit) 98.6 11/18/2016 8:30am Pulse 115 bpm 11/18/2016 9:25am Respirations 18 11/18/2016 8:30am Height 5 ft 7 in Weight 143 lb Body Mass Index 22.0 kg/m^2 Results Pending Laboratory Results Test Name Collection Date/Time Procedures Procedure Status Date Provider(s) Completed 11/02/16 Encounters Encounter Location Arrival/Admit Date Discharge/Depart Date Attending Provider Discharged Inpatient [facility] 11/16/16 1:40pm 11/18/16 11:40am VIRI NATARAJAN MD Registered Clinic [facility] 11/02/16 8:58am [facility] COORDINATOR Recent Diagnosis Atrial fibrillation with RVR Dystonia Hyperthyroidism Hypokalemia
[2016-11-21] MEDS ORDERED: SODIUM CHLORIDE FLUSH 3 ML SYR IV PRN (10:30)
[2016-11-21] MEDS ORDERED: DILTIAZEM 25 MG/5 ML (CARDIZEM) VIAL IV ONE ×2 (10:30→11:15)
[2016-11-21] MEDS: SODIUM CHLORIDE FLUSH 10 ML SYR IV PRN ×2 (10:42→11:25)
[2016-11-21 10:49] LABS: BASOPHILS % (AUTO) 0 % (0-2); EOSINOPHILS % (AUTO) 0 % (0-4); LYMPHOCYTES # (AUTO) 0.8 X10^3; MEAN CORPUSCULAR HGB CONC 33.6 g/dL (31.0-37.0); MEAN PLATELET VOLUME 11.7 FL (6.0-9.5); MONOCYTES # (AUTO) 0.8 X10^3; MONOCYTES % (AUTO) 9 % (3-11); NEUTROPHILS # (AUTO) 7.8 X10^3; NEUTROPHILS % (AUTO) 82 % (51-67); PLATELET COUNT 298 10^3uL (150-450)
[2016-11-21 10:52] LABS: MEAN CORPUSCULAR HEMOGLOBIN 23.6 PG (26.0-34.0); MEAN CORPUSCULAR VOLUME 70 FL (80-100)
[2016-11-21 11:00] LABS: ALBUMIN 3.1 g/dL (3.4-5.0); ANION GAP 14.6 MEQ/L (3-15); CALCULATED IONIZED CALCIUM 3.9 mg/dL (3.8-4.6); TOTAL PROTEIN 6.8 g/dL (6.4-8.5)
--- NOTE | 2016-11-21 12:27 | NUR ---
HOSPITALIST CALLED AT THIS TIME
[2016-11-21] MEDS ORDERED: AMIODARONE FOR BOLUS 900 MG in D5W IV (EXCEL) 482 ML IV SCH (12:35)
[2016-11-21] MEDS ORDERED: AMIODARONE FOR BOLUS 150 MG in D5W (IVPB) 100 ML IV ONE (12:35)
[2016-11-21 12:57] VITALS: BP 131/76
== END 2016-11-21 13:20 | disposition short-term general hospital (02) ==
LOC: EDUNIT# 10:02 → ED 10:04
DX: E05.90 Thyrotoxicosis, unspecified without thyrotoxic crisis or storm (principal); I48.91 Unspecified atrial fibrillation; Z79.01 Long term (current) use of anticoagulants
CPT/HCPCS: 36415; 80053; 83735; 83880; 85025; 85610; 93005; 96361; 96365; 96375; 96376; 99285; J0282; J7030; J7060; 93010; 99284

== ENCOUNTER → 2016-11-21 | Outpatient (CLI) | payer BC, MEDICARE | LOC: EMS 13:20 | PROVIDERS: ATTEND Emergency Medicine | DX: E05.90 Thyrotoxicosis, unspecified without thyrotoxic crisis or storm (principal); I48.91 Unspecified atrial fibrillation ==

== ENCOUNTER → 2016-11-29 | Outpatient (CLI) | payer BC, MEDICARE | LOC: LAB 10:57 | PROVIDERS: ATTEND Family Medicine | DX: I48.1 Persistent atrial fibrillation (principal) | CPT/HCPCS: 36415; 85610 ==

== ENCOUNTER → 2016-12-11 | Outpatient (CLI) | payer BC, MEDICARE ==
[2016-12-11 10:06] LABS: ALBUMIN 3.3 g/dL (3.4-5.0); ANION GAP 13.7 MEQ/L (3-15)
== END ==
LOC: LAB 09:21
PROVIDERS: ATTEND Internal Medicine
DX: E87.1 Hypo-osmolality and hyponatremia (principal)
CPT/HCPCS: 36415; 80069